=== PATIENT | male | born 1970 | race Caucasian/White ===

== ENCOUNTER 2019-10-01 09:38 | Emergency (ER) | payer OTHER ==
--- OUTSIDE RECORDS SUMMARY | 2019-10-01 09:46 | XMS REPORT | Summary of Care ---
:1970 Author Organization [facility] Address [address] [place] [address] Care Team Providers Name Role Phone Harsh Magallon Primary Care Provider Reason for Referral Refer to Department Only (Routine) Status Reason Specialty Diagnoses / Referred By Referred To Procedures Contact Contact Pending Review DERMATOLOGY Diagnoses History [place] [address] [place], [place] [id number] Reason for Visit Reason Comments Check Up No complaints. Encounter Details Date Type Department Care Team Description 09/07/2019 Office Visit [facility] Harsh Magallon, History of pyoderma gangrenosum (Primary Dx); Medicine Routine general medical examination at a health care facility [address] [facility] [address] [place] [id number] [place] [address] [phone] Allergies No Known Allergiesdocumented as of this encounter (statuses as of 09/07/2019) Medications Medication Sig Dispensed Refills Start Date End Date Status Loratadine-Pseudo Take by mouth 0 Active ephedrine NEEDED. (LORATADINE-D 24HR PO) Adalimumab Inject 0 Discontinued (HUMIRA) 20 beneath the 0 (Other) MG/0.2ML skin. 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/2018 Overview: Dermatology Dr Fransisco Butler [facility] Microscopic colitis 12/06/2012 Psoriasis 01/25/2010 Overview: Over the counter hydrocortisone ointment as needed documented as of this encounter (statuses as of 09/07/2019) Immunizations Name Administration Dates Next Due Influenza (IM) Preservative Free 08/30/2018, 07/07/2017, 07/04/2013, 05/20/2012 Influenza Virus Vaccine Pres Free 04/27/2011 6-35 Months documented as of this encounter Social History Tobacco Use Types Packs/Day Years Used Date Never Smoker Smokeless Tobacco: Never Used Alcohol Use Drinks/Week oz/Week Comments Yes 4 Standard drinks or equivalent 3.3 Sex Assigned at Date Recorded Not on file Job Start Date Occupation Industry Not on file Not on file Not on file Travel History Travel Start Travel End No recent travel history available. documented as of this encounter Last Filed Vital Signs Vital Sign Reading Time Taken Comments Blood Pressure 128/74 09/07/2019 12:13 PM EST Pulse - - Temperature - - Respiratory Rate 14 09/07/2019 12:13 PM EST Oxygen Saturation - - Inhaled Oxygen Concentration - - Weight 77.2 kg (170 lb 3.2 oz) 09/07/2019 12:13 PM EST Height 180.3 cm (5' 11") 09/07/2019 12:13 PM EST Body Mass Index 23.74 09/07/2019 12:13 PM EST documented in this encounter Patient Instructions Patient InstructionsHarsh Magallon MD - 09/07/2019 12:00 PM Nikhil work today Dermatology referral The 6 recommendations below are much more powerful than any medication or vitamin available on the market: 1. Engage in at least 30 minutes of regular moderate physical activity every day. This means exerting yourself so that you become slightly short of breath and have difficulty speaking a full sentence when you are exercising. This could be walking, running, biking, swimming, hiking, or any other type of gym activity. 2. Eat at least 6 servings per day fruit and vegetable 3. Get at least 7 hours of restful sleep per night 4. Do not smoke tobacco or marijuana products 5. Drink no more than 2 serving of alcohol per day 6. Drink at least 8 full glasses of water per day documented in this encounter Progress Notes Harsh Magallon MD - 09/07/2019 12:00 PM EST SUBJECTIVE: Dariel Roldan is a 49-y.o. male for presenting for his annual checkup. He has psoriasis and eczema and asks for updated referral to dermatology Dr Butler Patient Active Problem List Diagnosis Psoriasis Microscopic colitis History of pyoderma gangrenosum Current Outpatient Medications Medication Sig Loratadine-Pseudoephedrine (LORATADINE-D 24HR PO) Take by mouth NEEDED. No current facility-administered medications for this visit. Allergies: Patient has no known allergies. ROS: Feeling well. No dyspnea or chest pain on exertion. No abdominal pain, change in bowel habits,black or bloody stools. No urinary tract or prostatic symptoms. No neurological complaints. All rest of the 12 item ROS is negative. OBJECTIVE: The patient appears well, alert, oriented x 3, in no distress. BP 128/74 | Resp 14 | Ht 5' 11" (1.803 m) | Wt 170 lb 3.2 oz (77.2 kg) | BMI 23.74 kg/m ENT normal. Neck supple. No adenopathy or thyromegaly. VIRIDIANA. Lungs are clear, good air entry, no wheezes, rhonchi or rales. S1 and S2 normal, no murmurs, regular rate and rhythm. Abdomen is soft without tenderness, guarding, mass or organomegaly. exam: no penile lesions or discharge, no testicular masses or tenderness, no hernias. Rectal and prostate exam: deferred, not clinically indicated. Extremities show no edema, normal peripheral pulses. Neurological is normal without focal findings. Several patches of psoriasis on buttocks and upper legs ASSESSMENT: healthy adult male PLAN: continue current healthy lifestyle patterns and return for routine annual checkups Patient Instructions Blood work today Dermatology referral The 6 recommendations below are much more powerful than any medication or vitamin available on the market: 1. Engage in at least 30 minutes of regular moderate physical activity every day. This means exerting yourself so that you become slightly short of breath and have difficulty speaking a full sentence when you are exercising. This could be walking, running, biking, swimming, hiking, or any other type of gym activity. 2. Eat at least 6 servings per day fruit and vegetable 3. Get at least 7 hours of restful sleep per night 4. Do not smoke tobacco or marijuana products 5. Drink no more than 2 serving of alcohol per day 6. Drink at least 8 full glasses of water per day documented in this encounter Plan of Treatment Name Type Priority Associated Diagnoses Date/Time LIPID PROFILE Lab Routine Routine general medical 09/07/2019 12:40 PM examination at a [facility] care facility COMPREHENSIVE METABOLIC Lab Routine Routine general medical 09/07/2019 12: 40 PM PANEL examination at a [facility] facility Name Type Priority Associated Diagnoses Order Schedule REFER TO DERMATOLOGY Referral Routine History of pyoderma Expected: 2019, gangrenosum Expires: 09/07/2020 Health Maintenance Due Date Last Done Comments DTaP/Tdap/Td Vaccines (1 - 1982 Tdap) INFLUENZA VACCINE (#1) 2019 08/30/2018, 07/07/2017, 07/04/2013, Additional history exists DEPRESSION SCREENING 08/30/2019 08/30/2018 Colonoscopy 09/13/2021 09/13/2012 LIPID DISORDER SCREENING 08/23/2023 08/23/2018, 06/29/2017, 05/25/2012, Additional history exists HEPATITIS A IMMUNIZATION Aged Out No longer eligible SERIES based on patient's age to complete this topic HPV IMMUNIZATION SERIES Aged Out No longer eligible based on patient's age to complete this topic MENINGOCOCCAL VACCINE IMM Aged Out No longer eligible based on patient's age to complete this topic PNEUMOCOCCAL 0-64 YRS Aged Out No longer eligible based on patient's age to complete this topic documented as of this encounter Results Not on filedocumented in this encounter Visit Diagnoses Diagnosis History of pyoderma gangrenosum Personal history of diseases of skin and subcutaneous tissue Routine general medical examination at a health care facility documented in this encounter Insurance Payer Benefit Plan / Subscriber ID Effective Dates Phone Address Type Group [employer] [place] xxxxxxxxxx 2009-Present [employer] documented as of this encounter
[2019-10-01 09:48] VITALS: BP 108/69
[2019-10-01 10:25] LABS: Influenza A Molecular Negative (Negative); Influenza B Molecular Negative (Negative)
--- NOTE | 2019-10-01 10:53 | UC ---
FLU HPI - HPI Summary HPI Summary: started yesterday feeling achy, cough and fever, took advil and fever has not returned. still has cough today did not have flu shot this year - History of Current Complaint Chief Complaint: UCGeneralIllness Stated Complaint: BODYACHES HEADACHE FEVER COUGH Time Seen by Provider: 10/01/19 10:00 Hx Obtained From: Patient Onset/Duration: Sudden Onset Severity Currently: Mild Pain Intensity: 1 Associated Signs & Symptoms: Positive: Fever - Allergy/Home Medications Allergies/Adverse Reactions: Allergies Allergy/AdvReac Type Severity Reaction Status Date / Time No Known Allergies Allergy Verified 10/01/19 09:49 Home Medications: Home Medications NK [No Home Medications Reported] 10/01/19 [History Confirmed 10/01/19] PMH/Surg Hx/FS Hx/Imm Hx Previously Healthy: Yes - Surgical History Surgical History: Yes Surgery Procedure, Year, and Place: skin biopsy x 2 - Family History Known Family History: Positive: None - Social History Occupation: Employed Full-time Lives: With Family Alcohol Use: Occasionally Substance Use Type: None Smoking Status (MU): Never Smoked Tobacco Review of Systems All Other Systems Reviewed And Are Negative: Yes Constitutional: Positive: Fever Skin: Positive: Negative. Negative: Rash ENT: Positive: Sinus Congestion. Negative: Sore Throat, Sinus Pain/Tenderness Respiratory: Positive: Cough. Negative: Shortness Of Breath Cardiovascular: Positive: Negative Neurological/Mental Status: Positive: Negative Psychological: Positive: Negative Is Patient Immunocompromised?: No Physical Exam Triage Information Reviewed: Yes Appearance: Well-Appearing, No Pain Distress, Well-Nourished Vital Signs: Initial Vital Signs Temp 98.1 F 10/01/19 09:46 Pulse 77 10/01/19 09:46 Resp 15 10/01/19 09:46 BP 108/69 10/01/19 09:46 Pulse Ox 100 10/01/19 09:46 Vital Signs Reviewed: Yes Eyes: Positive: Conjunctiva Clear ENT: Positive: Pharynx normal, Nasal congestion. Negative: Sinus tenderness Respiratory: Positive: Lungs clear, Other: - mildly productive cough heard on exam x 1 episode Cardiovascular Exam: Normal Cardiovascular: Positive: RRR Neurological Exam: Normal Psychological Exam: Normal Skin Exam: Normal Flu Course/Dx - Differential Dx/Diagnosis Differential Diagnosis/HQI/PQRI: Bronchitis, Influenza, Upper Respiratory Infection Provider Diagnosis: Upper respiratory infection Discharge ED - Sign-Out/Discharge Documenting (check all that apply): Patient Departure All imaging exams completed and their final reports reviewed: No Studies - Discharge Plan Condition: Good Disposition: HOME Patient Education Materials: Upper Respiratory Infection (ED) Referrals: Harsh Magallon MD [Primary Care Provider] - 2 Days (if no better) Additional Instructions: rest and drink plenty of fluids use ibuprofen as directed for pain return if your symptoms worsen - Billing Disposition and Condition Condition: GOOD Disposition: Home
== END 2019-10-01 10:56 | disposition home or self-care (01) ==
LOC: UCEAST 09:38
DX: J06.9 Acute upper respiratory infection, unspecified (principal)
CPT/HCPCS: 99211; G0463